=== PATIENT | female | born 1965 | race Caucasian/White ===

== ENCOUNTER 2020-02-10 11:15 | Emergency (ER) | payer OTHER, SELFPAY ==
[2020-02-10 11:28] VITALS: BP 151/78; PULSE 81; RESP 20; TEMP 36.7; O2SAT 99
--- NOTE | 2020-02-10 11:31 | ED.URI ---
HPI - URI/Sore Throat General Chief Complaint: Upper Respiratory Infection Stated Complaint: headache,cough History of Present Illness HPI Narrative: This is a 54-year-old female comes in complaining of a cough congestion headache this been going on since Sunday been taken [id number] with no relief patient had tested for COVID this week and was negative. Patient denies smoking Related Data Allergies Allergy/AdvReac Type Severity Reaction Status Date / Time No Known Allergies Allergy Unknown Verified 05/02/19 11:12 Review of Systems Review of Systems: Narrative: CONSTITUTIONAL: Denies fever, chills, or sweats. EYES: Denies visual changes, redness, or discharge. ENT: Denies rhinorrhea, congestion, sore throat, or otalgia. CARDIOVASCULAR:Denies chest pain, palpitations, or edema. RESPIRATORY: Denies cough or dyspnea. GASTROINTESTINAL: Denies abdominal pain, nausea, vomiting, or diarrhea. GENITOURINARY: Denies dysuria or hematuria. SKIN:[Denies rash or itching. MUSCULOSKELETAL:Denies back pain, joint pain, or myalgia. NEUROLOGIC: Denies headache, numbness, or weakness. PSYCHIATRIC:Denies anxiety or depression [facility] Past Medical History Medical History (Updated 02/10/20 @ 11:51 by Parminder Smith NP) FH: cholecystectomy Hypertension Surgical History Surgical History (Updated 05/09/19 @ 11:41 by Darby Grimes NP) H/O section H/O: hysterectomy Hx of cholecystectomy Family History Family History (Updated 11/30/17 @ 13:21 by DOCTOR UNKNOWN) Other Cerebrovascular accident Family history of chronic obstructive pulmonary disease Family history of lung disease Hypertension Social History Social History Smoking status: Never smoker Alcohol intake: never Gender identity (if verbalized by the patient): Female Comments At time as signature, I have reviewed and agree with nursing past medical, social, surgical and family history. Please see nursing chart for further information. There is no relevant family history pertinent to the presenting complaint. Your blood pressure was elevated in the clinic today, I feel that this is due to your acute illness rather than essential hypertension. please follow-up with your regular doctor for further evaluation and monitor for evaluation of hypertension Please HEMAL schedule a followup visit with your personal physician with in the next 1-4 weeks for further evaluation and treatment. Also, ask your personal physician to assist you regarding blood pressure. Even blood pressure exceeding 120/80 may indicate pre-hypertension. If your symptoms persist, change or worsen significantly before you can contact your personal physician then please, without delay, go to the emergency department for further evaluation. Exam Narrative: Exam Narrative: GENERAL:Well-appearing, well-nourished, and in no acute distress. HEAD:Normocephalic, atraumatic. EYES: PERRLA and EOMI. ENT: Nares clear, positive rhinorrhea or epistaxis. Mucous membranes moist. NECK: Supple. CHEST: Clear to diminished auscultation.course cough continous. HEART: Regular rate and rhythm. No murmur heard. Normal peripheral pulses. ABDOMEN: Soft, nontender, nondistended, normal active bowel sounds. EXTREMITIES: Normal range of motion. No edema. SKIN: Warm, dry, no rash. NEURO: No focal deficits. Alert and oriented x3. Course Vital Signs Vital signs: Vital Signs Temperature 98.1 F 02/10/20 11:28 Pulse Rate 81 02/10/20 11:28 Respiratory Rate 20 02/10/20 11:28 Blood Pressure 151/78 H 02/10/20 11:28 Pulse Oximetry 99 02/10/20 11:28 Temperature 98.1 F 02/10/20 11:28 Pulse Rate 81 02/10/20 11:28 Respiratory Rate 20 02/10/20 11:28 Blood Pressure 151/78 H 02/10/20 11:28 Pulse Oximetry 99 02/10/20 11:28 Discharge Plan Discharge Clinical Impression: Bronchitis Upper respiratory infection Qualifiers: URI type: unspecified viral URI Qualifi
== END 2020-02-10 11:55 | disposition short-term general hospital (02) ==
PROVIDERS: Emergency Provider Nurse Practitioner Family; PCP Family Medicine
DX: J06.9 Acute upper respiratory infection, unspecified (principal)
CPT/HCPCS: 99213; G0463

== ENCOUNTER → 2020-02-20 10:11 | Outpatient (CLI) | payer OTHER, SELFPAY ==
--- NOTE | ~2020-02-20 | XR_ITS ---
EXAMINATION: XR chest 2V DATE: 02/20/2020 10:29 INDICATION: Cough. TECHNIQUE: Frontal and lateral views of the chest were obtained. COMPARISON: CT abdomen and pelvis 02/22/2017 FINDINGS: There is mild atelectasis in left lower lung zone. No pleural effusion or pneumothorax. The heart size is normal. Surgical clips in the right upper quadrant are likely from cholecystectomy. IMPRESSION: 1. Mild atelectasis in left lower lung zone. Reviewed, dictated and finalized at location B.
== END ==
PROVIDERS: PCP Family Medicine; Visit Provider Family Medicine
DX: R05 Cough (principal); J98.11 Atelectasis
CPT/HCPCS: 71046

== ENCOUNTER 2020-10-14 10:24 | Emergency (ER) | payer OTHER, SELFPAY ==
--- NOTE | ~2020-10-14 | XR_ITS ---
EXAMINATION: XR chest 2V DATE: 10/14/2020 11:20 INDICATION: Cough. TECHNIQUE: Frontal and lateral views of the chest were obtained. COMPARISON: Chest 2 views 02/20/2020 FINDINGS: There is mild atelectasis in left lower lung zone. No pleural effusion or pneumothorax. The heart size is normal. Surgical clips in the right upper quadrant are likely from cholecystectomy. IMPRESSION: 1. Mild atelectasis in left lower lung zone. Reviewed, dictated and finalized at location B.
--- NOTE | 2020-10-14 10:31 | ED.GENADULT ---
HPI - General Adult General Chief complaint: Upper Respiratory Infection Stated complaint: Cough,Chills,Body Aches Time Seen by Provider: 10/14/20 10:31 Source: patient Mode of arrival: ambulatory Limitations: no limitations History of Present Illness HPI narrative: 55-year-old female patient presents to the [facility] with complaints of upper respiratory symptoms for the past 3 to 4 days. Patient states she has had a cough, congestion, chills and body aches. Patient denies taking thing for her symptoms. Patient states she has been diagnosed with bronchitis at least once a year for the last couple of years. Denies being a smoker. Patient states that she has never been diagnosed with Covid and states that she has not gotten any Covid vaccines at this time. Patient states that time she has a little bit of shortness of breath but nothing consistent. No shortness of breath on exertion. No chest pain at this time. Related Data Home Medications Medication Instructions Recorded Confirmed phentermine 15 mg PO DAILY 10/14/20 10/14/20 valacyclovir 1,000 mg PO DAILY 10/14/20 10/14/20 Allergies Allergy/AdvReac Type Severity Reaction Status Date / Time No Known Allergies Allergy Unknown Verified 09/08/20 12:06 Review of Systems Review of Systems: Narrative: CONSTITUTIONAL: Denies fever, positive chills, body aches and denies sweats. EYES: Denies visual changes, redness, or discharge. ENT: Positive rhinorrhea, congestion, denies sore throat, positive intermittent right otalgia. CARDIOVASCULAR: Denies chest pain, palpitations, or edema. RESPIRATORY: Positive cough, denies dyspnea. GASTROINTESTINAL: Denies abdominal pain, nausea, vomiting, or diarrhea. GENITOURINARY: Denies dysuria or hematuria. SKIN: Denies rash or itching. MUSCULOSKELETAL: Denies back pain, joint pain, or myalgia. NEUROLOGIC: Denies headache, numbness, or weakness. PSYCHIATRIC: Denies anxiety or depression. [facility] Past Medical History Medical History FH: cholecystectomy Hypertension Normal colonoscopy (~2019) Surgical History Surgical History H/O section H/O: hysterectomy Hx of cholecystectomy Family History Family History Other Cerebrovascular accident Family history of chronic obstructive pulmonary disease Family history of lung disease Hypertension Social History Social History Smoking status: Never smoker Alcohol intake: never Gender identity (if verbalized by the patient): Female Comments At the time of my signature I agree with nursing past medical history, surgical, social, and family history. There is no relevant family history pertinent to the presenting complaint. Exam Narrative: Exam Narrative: GENERAL: Well-appearing, well-nourished, and in no acute distress. HEAD: Normocephalic, atraumatic. EYES: PERRLA and EOMI. ENT: Nares clear, no rhinorrhea or epistaxis. Mucous membranes moist. Posterior pharynx with no erythema, tonsillar edema, exudates or lesions present. There is a little bit of fluid noted behind the right ear on exam. No foreign bodies noted to the canals. NECK: Supple. No lymphadenopathy CHEST: Clear to auscultation. No respiratory distress. Patient able talk in clear complete sentences. No tripoding noted. HEART: Regular rate and rhythm. No murmur heard. Normal peripheral pulses. ABDOMEN: Soft, nontender, nondistended, normal active bowel sounds. EXTREMITIES: Normal range of motion. No edema. SKIN: Warm, dry, no rash. NEURO: No focal deficits. Alert and oriented x3. Course Reevaluation(s) Reevaluation #1: Reevaluated patient notified her that the x-ray does show some atelectasis to the left lower lobe. Discussed with her that while this is not necessarily pneumonia I am to go ahead
[2020-10-14 10:38] VITALS: BP 141/64; PULSE 84; RESP 16; TEMP 36.9; O2SAT 99
[2020-10-15 21:01] LABS: SARS-CoV-2 RNA PCR Negative
== END 2020-10-14 11:34 | disposition home or self-care (01) ==
PROVIDERS: Emergency Provider Nurse Practitioner Family; PCP Family Medicine
DX: J98.11 Atelectasis (principal); Z20.822 Contact with and (suspected) exposure to COVID-19; I10 Essential (primary) hypertension; Z85.9 Personal history of malignant neoplasm, unspecified
CPT/HCPCS: 71046; 99213; C9803; G0463; U0003; U0005

== ENCOUNTER 2020-11-03 09:44 | Outpatient (CLI) | payer OTHER, SELFPAY ==
--- NOTE | ~2020-11-03 | XR_ITS ---
XR abdomen obstructive series DATE: 11/03/2020 10:11 INDICATION: Pneumothorax follow-up TECHNIQUE: Supine and upright AP views of the abdomen COMPARISON: 02/22/2017 CT abdomen pelvis FINDINGS: Surgical clips, right upper quadrant, consistent with cholecystectomy. The psoas shadows are intact. No visceromegaly is evident. There is no evidence of intraperitoneal fr ee air. No bowel obstruction. Diffuse idiopathic skeletal hyperostosis of the lower thoracic spine. Degenerative changes of lumbar spine, most pronounced at L2-3. IMPRESSION: No evidence of bowel obstruction or intraperitoneal free air Reviewed, dictated and finalized at Location A. Reviewed, dictated and finalized at location A.
--- NOTE | ~2020-11-03 | XR_ITS ---
XR chest 2V DATE: 11/03/2020 10:11 INDICATION: Pneumothorax 2 weeks ago TECHNIQUE: PA and lateral views COMPARISON: 10/14/2020 and 02/17/2020 2 view chest FINDINGS: Chronic mild discoid scarring at the left lower lateral lung, not significantly changed sin ce 02/20/2020. No pulmonary infiltrate or consolidation, pleural effusion or pulmonary vascular conges tion or pneumothorax. Normal heart size. No hilar or mediastinal enlargement. Surgical clips, right upper quadrant, consistent with cholecystectomy. Diffuse idiopathic skeletal hyperostosis of the mid to lower thoracic spine. IMPRESSION: No active cardiopulmonary disease; no pneumothorax Reviewed, dictated and finalized at location A.
== END 2020-11-03 09:45 | disposition home or self-care (01) ==
LOC: ANHIMG 09:54
PROVIDERS: PCP Family Medicine; Visit Provider Physician Assistant
DX: J98.11 Atelectasis (principal); R10.9 Unspecified abdominal pain
CPT/HCPCS: 71046; 74019

== ENCOUNTER 2020-11-05 09:00 | Emergency (ER) | payer OTHER, SELFPAY ==
--- NOTE | 2020-11-05 09:17 | ED.URI ---
HPI - URI/Sore Throat General Chief Complaint: Upper Respiratory Infection Stated Complaint: Cough, Lt foot pain Time Seen by Provider: 11/05/20 09:20 Source: patient Mode of arrival: ambulatory Limitations: no limitations History of Present Illness HPI Narrative: Janelle Zavala is a 55 yo female with a recurrent history of complaints of cough and shortness of breath, who comes to [facility] stating that she felt something was wrong even though her chest x-ray was normal 2 days ago in her primary care doctor's office. She also is complaining of foot pain on left from walking around job yesterday Related Data Home Medications Medication Instructions Recorded Confirmed phentermine 15 mg PO DAILY 10/14/20 11/05/20 Allergies Allergy/AdvReac Type Severity Reaction Status Date / Time benzonatate Allergy Blister Verified 11/05/20 09:22 [From Colette Carrillo] Review of Systems Review of Systems: Narrative: CONSTITUTIONAL: Denies fever, chills, sweats. EYES: Denies visual changes, redness, discharge. ENT: Denies rhinorrhea, congestion, sore throat, otalgia. CARDIOVASCULAR: Denies chest pain, palpitations, edema. RESPIRATORY: Denies dyspnea, wheezing, has cough GASTROINTESTINAL: Denies abdominal pain, nausea, vomiting, diarrhea. Right upper quadrant pain GENITOURINARY: Denies dysuria, hematuria, abnormal discharge SKIN: Denies rash or itching. NEUROLOGIC: Denies numbness, or focal weakness. PSYCHIATRIC: Denies anxiety or depression. Left medial heel pain [facility] Past Medical History Medical History FH: cholecystectomy Hypertension Normal colonoscopy (~2018) Surgical History Surgical History H/O section H/O: hysterectomy Hx of cholecystectomy Family History Family History Other Cerebrovascular accident Family history of chronic obstructive pulmonary disease Family history of lung disease Hypertension Social History Social History Alcohol intake: never Gender identity (if verbalized by the patient): Female Comments At time of signature, I agree with nursing past medical, surgical, social and family history. There is no relevant family history pertinent to the presenting complaint. Exam Narrative: Exam Narrative: GENERAL: This is a well-nourished, well-developed patient, in moderate distress with multiple complaints. HEAD: normocephalic, atraumatic. EYES: Sclera clear/white. Vision is grossly intact. EARS: External ears normal, Hearing grossly intact. NOSE: External nose normal without nasal discharge, nares without redness, no rhinorrhea. THROAT: Mucous membranes moist, posterior pharynx mild erythema NECK: Neck supple, non-tender CARDIOVASCULAR: Regular rate and rhythm without murmurs, gallops, or rubs. RESPIRATORY: Clear to auscultation. Breath sounds equal bilaterally. No wheezes, rales, or rhonchi. GASTROINTESTINAL: Abdomen soft, -tender, upper right SKIN: warm, intact with no suspicious lesions or rash, good texture and turgor. NEURO: awake, alert, and oriented to person, place and time. There were no obvious focal neurologic abnormalities. Steady gait EXTREMITIES: Normal range of motion. Left foot pain with flexion extension on the medial heel, no ecchymosis, no swelling BACK: Nontender without deformity Course Course Emergency Course: Patient is here for complaints of cough which is recurrent right upper quadrant pain which is recurrent and left medial heel pain Patient given Phenergan for cough prescribed Qvar which her primary care had tried to give her a couple of months ago and will tire [employer] aircraft to albuterol if the insurance will cover it, and told to use lidocaine gel to left medial foot and wear Pascual wrap and supportive shoes. Patient states that between the
[2020-11-05 09:20] VITALS: BP 120/57; PULSE 85; RESP 18; TEMP 36.4; O2SAT 100
== END 2020-11-05 09:57 | disposition home or self-care (01) ==
PROVIDERS: Emergency Provider Nurse Practitioner; PCP Family Medicine
DX: R05 Cough (principal); R10.11 Right upper quadrant pain; M79.672 Pain in left foot; I10 Essential (primary) hypertension; Z85.9 Personal history of malignant neoplasm, unspecified
CPT/HCPCS: 99213; G0463

== ENCOUNTER 2021-09-07 15:37 | Emergency (ER) | payer OTHER, SELFPAY ==
[2021-09-07 16:00] VITALS: BP 128/81; PULSE 117; RESP 18; TEMP 36.2; O2SAT 98
[2021-09-07 16:16] VITALS: BP 128/81; PULSE 117; RESP 18; TEMP 36.2; O2SAT 98
--- NOTE | 2021-09-07 16:35 | ED.NAVMDI ---
HPI - Nausea/Vomiting/Diarrhea General Chief complaint: Ear Stated complaint: Vomiting,Bilateral Ear Irritation,Headache Time Seen by Provider: 09/07/21 16:20 Source: patient Mode of arrival: ambulatory Limitations: no limitations History of Present Illness HPI Narrative: Janelle Zavala is a 56-year-old female with high blood pressure who [facility] vomiting for 2 days and bilateral ear pain. She describes the vomiting as being dark red coffee-ground in color as she has been unable to eat or drink for the last 2 days when she lays down at night she has gastric reflux that started to occur in the last 2 days; her ears also bother her. She had COVID on August 05 and has recovered for the most part except she continues to have fatigue and some shortness of breath with exertion Related Data Home Medications Medication Instructions Recorded Confirmed lisinopril-hydrochlorothiazide 1 tablet PO DAILY 09/07/21 09/07/21 Allergies Allergy/AdvReac Type Severity Reaction Status Date / Time benzonatate Allergy Blister Verified 09/07/21 15:54 [From Colette Carrillo] Review of Systems Review of Systems: CONSTITUTIONAL: Denies fever, chills, sweats. EYES: Denies visual changes, redness, discharge. ENT: Denies rhinorrhea, congestion, sore throat, bilateral otalgia. CARDIOVASCULAR: Denies chest pain, palpitations, edema. RESPIRATORY: Denies dyspnea, wheezing, cough GASTROINTESTINAL: Denies abdominal pain, nausea, coffee-ground emesis , no diarrhea. GENITOURINARY: Denies dysuria, hematuria, abnormal discharge SKIN: Denies rash or itching. NEUROLOGIC: Denies numbness, or focal weakness. PSYCHIATRIC: Denies anxiety or depression. [facility] Past Medical History Medical History FH: cholecystectomy Hypertension Normal colonoscopy (~2018) Surgical History Surgical History H/O section H/O: hysterectomy Hx of cholecystectomy Family History Family History Other Cerebrovascular accident Family history of chronic obstructive pulmonary disease Family history of lung disease Hypertension Social History Social History (Updated 09/07/21 @ 16:38 by Carolina Villanueva CNP) Smoking status: Never smoker Alcohol intake: never Gender identity (if verbalized by the patient): Female Comments At time of signature, I agree with nursing past medical, surgical, social and family history. There is no relevant family history pertinent to the presenting complaint. Exam Narrative: GENERAL: This is a well-nourished, well-developed patient, in moderate distress. HEAD: normocephalic, atraumatic. EYES: . Sclera clear/white. Vision is grossly intact. EARS: External ears normal, auditory canals erythema with bulging TMs. Hearing grossly intact. NOSE: External nose normal without nasal discharge, nares without redness, no rhinorrhea. THROAT: Mucous membranes moist, posterior pharynx mild erythema NECK: Neck supple, non-tender CARDIOVASCULAR: Tachycardia rate and rhythm without murmurs, gallops, or rubs. RESPIRATORY: Clear to auscultation. Breath sounds equal bilaterally. No wheezes, rales, or rhonchi. GASTROINTESTINAL: Abdomen soft, SKIN: warm, intact with no suspicious lesions or rash, good texture and turgor. NEURO: awake, alert, and oriented to person, place and time. There were no obvious focal neurologic abnormalities. Steady gait EXTREMITIES: Normal range of motion. BACK: Nontender without deformity Course Course Emergency Course: Patient comes to [facility] with coffee-ground emesis and bilateral ear pain On exam we will treat with polymyxin eardrops but due to the coffee-ground emesis and tachycardia will be sent to the ER for further evaluation Level of Care: Express Care Visit Vital Signs Vital signs: Vital Signs Temperature 97.2 F L
== END 2021-09-07 16:35 | disposition short-term general hospital (02) ==
PROVIDERS: Emergency Provider Nurse Practitioner; PCP Family Medicine
DX: H92.03 Otalgia, bilateral (principal); R11.10 Vomiting, unspecified; I10 Essential (primary) hypertension
CPT/HCPCS: 99213; G0463

== ENCOUNTER 2021-09-07 16:56 | Emergency (ER) | payer OTHER, SELFPAY ==
[2021-09-07] VITALS (13 sets, daily range): BP systolic 130–146; BP diastolic 66–89; PULSE 81–111; RESP 11–19; TEMP 36.6; O2SAT 97–100
[2021-09-07 19:12] LABS: Basophils Absolute Auto 0.1 K/mm3 (0.0-0.1); Basophils Percent Auto 0.5 % (0.2-1.2); Eosinophils Absolute Auto 0.1 K/mm3 (0-0.3); Eosinophils Percent Auto 0.4 % (0-4.4); Hematocrit 45.4 % (37.0-47.0); Hemoglobin 14.7 g/dL (12.0-15.0); Immature Granulocyte Percent A 0.7 % (0-0.5); Lymphocytes Percent Auto 21.1 % (18.3-44.2); Mean Corpuscular HGB Conc 32.4 g/dl (32-36); Mean Corpuscular Hemoglobin 28.6 pg (26-34); Mean Corpuscular Volume 88.3 fl (80-100); Mean Platelet Volume 10.5 fl (7.4-10.4); Monocytes Absolute Auto 1.6 K/mm3 (0.1-0.6); Monocytes Percent Auto 10.7 % (2.6-8.5); Neutrophils Absolute Auto 9.8 K/mm3 (1.3-6.7); Neutrophils Percent Auto 66.6 % (45.5-73.1); Platelet Count Result 356 k/mm3 (150-375); Red Blood Count 5.14 M/mm3 (4.2-5.4); Red Cell Distribution Width 13.3 % (11.5-14.5); White Blood Count 14.7 K/mm3 (4.5-10.0)
[2021-09-07 19:18] LABS: Alanine Aminotransferase 22 U/L (4-35); Albumin Level 4.9 g/dL (3.5-5.1); Alkaline Phosphatase 117 U/L (38-126); Anion Gap 10 mmol/L (8-16); Aspartate Amino Transferase 28 U/L (14-36); Bilirubin,Total 0.7 mg/dL (0.2-1.3); Blood Urea Nitrogen 31 mg/dL (7-17); Calcium 10.1 mg/dL (8.4-10.2); Carbon Dioxide 28 mmol/L (22-30); Chloride 99 mmol/L (98-107); Estimated CRCL calculation 49 ml/min; Estimated Glomerular Filt Rate 51; Glucose 116 mg/dL (65-110); Lipase 52 U/L (23-300); Potassium 3.6 mmol/L (3.4-5.0); Sodium 137 mmol/L (137-145)
[2021-09-07] MEDS: SODIUM CHLORIDE 0.9% IV 1,000 ML 999 ML IV CONT (20:48)
[2021-09-07] MEDS: PANTOPRAZOLE SODIUM IV 40 MG VIAL IV PUSH (21:12)
[2021-09-07] MEDS: ONDANSETRON INJ 4 MG/2 ML VIAL IV PUSH (21:12)
--- NOTE | 2021-09-07 22:23 | ED.NAVMDI ---
HPI - Nausea/Vomiting/Diarrhea General Chief complaint: Nausea/Vomiting/Diarrhea Stated complaint: coffee ground emesis Time Seen by Provider: 09/07/21 20:24 Source: patient and family Mode of arrival: ambulatory Limitations: no limitations History of Present Illness HPI Narrative: 56-year-old with a history of hypertension s/p cholecystectomy here with complaints of nausea, vomiting for past 1 week she states that she is feeling extremely dehydrated and weak. She states at times she threw up coffee-ground emesis. She denies any blood in the stool or black-colored stool. Has mild upper abdominal pain. She denies any previous history of gastric ulcers. Denies being lightheaded or dizzy. MD elicited complaint: nausea, vomiting and abdominal pain Onset (ago): week(s) (1) Description of vomiting: coffee grounds and none Description of diarrhea: watery Location of pain: epigastric Pain consistency: intermittent Quality: aching Exacerbating factors: none Relieving factors: none Associated symptoms: denies other symptoms Related Data Home Medications Medication Instructions Recorded Confirmed lisinopril-hydrochlorothiazide 1 tablet PO DAILY 09/07/21 09/07/21 Allergies Allergy/AdvReac Type Severity Reaction Status Date / Time benzonatate Allergy Blister Verified 09/07/21 15:54 [From Colette Carrillo] Review of Systems Review of Systems: All systems reviewed & are unremarkable except as noted in HPI and below Constitutional: Constitutional: Reports no additional constitutional complaints Eyes: Eyes: Reports no additional eye complaints ENT: Reports system reviewed and no additional complaints, except as documented Cardiovascular: Cardiovascular: Reports no additional cardiovascular complaints Respiratory: Respiratory: Reports no additional respiratory complaints Gastrointestinal: Gastrointestinal: Reports as per HPI Musculoskeletal: Musculoskeletal: Reports no additional musculoskeletal complaints Integumentary/Breasts: Skin/Breast: Reports system reviewed and no additional complaints, except as docu Neurologic: Reports system reviewed and no additional complaints, except as documented PMFSH Past Medical History Medical History FH: cholecystectomy Hypertension Normal colonoscopy (~2019) Surgical History Surgical History H/O section H/O: hysterectomy Hx of cholecystectomy Family History Family History Other Cerebrovascular accident Family history of chronic obstructive pulmonary disease Family history of lung disease Hypertension Social History Social History Smoking status: Never smoker Alcohol intake: never Gender identity (if verbalized by the patient): Female Exam Narrative: GENERAL: Well-appearing, well-nourished, and in no acute distress. HEAD: Normocephalic, atraumatic. EYES: PERRLA and EOMI.. NECK: Supple. CHEST: Clear to auscultation. No respiratory distress. HEART: Regular rate and rhythm. No murmur heard. Normal peripheral pulses. ABDOMEN: Soft, mild epigastric tenderness , nondistended, normal active bowel sounds. EXTREMITIES: Normal range of motion. No edema. SKIN: Warm, dry, no rash. NEURO: No focal deficits. Alert and oriented x3. PSYCH: Normal mood and affect. Course Course Emergency Course: Patient started feeling much better after IV fluids. She did not have any further episodes of nausea or vomiting. Her abdominal pain is resolved. Advised her to drink fluids as tolerated. Take medication as prescribed., Follow-up with Dr. Ellington Vital Signs Vital signs: Vital Signs Temperature 36.6 C 09/07/21 17:13 Pulse Rate 108 H 09/07/21 17:13 Respiratory Rate 16 09/07/21 17:13 Blood Pressure 130/85 09/07/21 17:13 Pulse Oximetry 9
== END 2021-09-07 22:52 | disposition home or self-care (01) ==
PROVIDERS: Emergency Provider Family Medicine; PCP Family Medicine
DX: K29.70 Gastritis, unspecified, without bleeding (principal); I10 Essential (primary) hypertension
CPT/HCPCS: 36415; 80053; 83690; 85025; 96361; 96374; 96375; 99284; C9113; J2405; J7030

== ENCOUNTER 2022-01-10 11:19 | Emergency (ER) | payer OTHER, SELFPAY ==
--- NOTE | 2022-01-10 11:28 | ED.URI ---
HPI - URI/Sore Throat General Chief Complaint: Upper Respiratory Infection Stated Complaint: headache,sorethroat,cough Time Seen by Provider: 01/10/22 11:28 Source: patient Mode of arrival: ambulatory Limitations: no limitations History of Present Illness HPI Narrative: Ms. Zavala is a 56-year-old female patient presenting to the clinic today with complaints of a headache, body aches, sore throat, and a cough x3 days. She reports she has had positive exposure to 2 people who tested positive for COVID this week. Reports some mild shortness of breath with nonproductive cough. MD elicited complaint: cough, sore throat, rhinorrhea and nasal congestion Related Data Home Medications Medication Instructions Recorded Confirmed thyroid (pork) 30 mg tablet 30 mg PO DAILY 01/10/22 01/10/22 ([place] [facility]) Allergies Allergy/AdvReac Type Severity Reaction Status Date / Time benzonatate Allergy Blister Verified 01/10/22 11:27 [From Colette Carrillo] Review of Systems Review of Systems: Pertinent positives per HPI. Patient denies any fever, chills, rash, visual changes, dizziness, shortness of breath, chest pain, palpitations, nausea, vomiting, diarrhea, constipation, abdominal pain, or any urinary issues. [facility] Past Medical History Medical History FH: cholecystectomy Hypertension Normal colonoscopy (~2014) [place], Dr. Ruiz Surgical History Surgical History H/O section H/O: hysterectomy Hx of cholecystectomy Family History Family History Other Cerebrovascular accident Family history of chronic obstructive pulmonary disease Family history of lung disease Hypertension Social History Social History Smoking status: Never smoker Alcohol intake: current Drinks per week: 1 Alcohol use details: occasional; once weekly at most Substance use: never Substance use type: does not use Gender identity (if verbalized by the patient): Female Comments At the time of my signature, I reviewed and agree with the nursing past medical, surgical, social, and family history. There is no relevant family history pertinent to the patient complaint. Exam Narrative: General: Well-developed, well nourished, in no apparent distress Head: Normocephalic, atraumatic Eyes: Pupils equally round and reactive to light bilaterally, EOM intact, sclera and conjunctive clear, no discharge, lids normal Ears: TMs intact and clear, ear canals clear, no drainage, grossly hearing normal. Nose: Nares patent, clear nasal discharge, moderate inflammation, no sinus tenderness. Mouth: Oral pharynx without lesions or masses, good dentition, MMM. Postnasal drip, oropharynx red Neck: Supple, trachea midline, no enlargement of anterior or posterior cervical nodes, no thyroid masses or goiter palpable. Cardio: Regular rate and rhythm, s1 and s2 normal, no murmur appreciated. Resp: Clear to auscultation bilaterally, no rhonchi, rales, wheezing or rubs Course Course Emergency Course: Portions of this record may have been created with voice recognition software. Level of Care: Express Care Visit Vital Signs Vital signs: Vital signs reviewed MDM - URI/Sore Throat MDM Narrative Medical decision making narrative: At the time of visit patient is resting comfortably on the exam table. COVID testing is negative in the clinic. Strep screen obtained and was negative in the clinic. I suspect the patient has a viral syndrome. Recommend retesting for COVID tomorrow. Supportive measures were discussed with the patient and work note was given. Patient voiced understanding of discharge instructions and agrees to treatment plan Differential Diagnosis Differential diagnosis: Likely u
[2022-01-10 11:31] VITALS: BP 138/68; PULSE 85; RESP 18; TEMP 36.9; O2SAT 100
== END 2022-01-10 12:25 | disposition home or self-care (01) ==
PROVIDERS: Emergency Provider Nurse Practitioner Family; PCP Family Medicine
DX: B34.9 Viral infection, unspecified (principal); Z20.822 Contact with and (suspected) exposure to COVID-19; I10 Essential (primary) hypertension
CPT/HCPCS: 87081; 87426; 87880; 99213; C9803; G0463

== ENCOUNTER 2022-01-13 12:18 | Emergency (ER) | payer OTHER, SELFPAY ==
[2022-01-13 12:32] VITALS: BP 141/63; PULSE 82; RESP 18; TEMP 37; O2SAT 99
--- NOTE | 2022-01-13 12:33 | ED.URI ---
HPI - URI/Sore Throat General Chief Complaint: Skin/Abscess/Foreign Body Stated Complaint: rash Time Seen by Provider: 01/13/22 12:33 Source: patient, RN notes reviewed and old records reviewed Mode of arrival: ambulatory Limitations: no limitations History of Present Illness HPI Narrative: 56-year-old female returns to the [facility] with a rash to the right upper forehead and into the scalp. Was seen on 10 January for a URI and states she is feeling better however woke up with this red itching, burning and tingling area to the upper right forehead. Denies any blurry vision change in vision. Denies fevers. Denies headache. Has been applying triamcinolone cream Onset (ago): day(s) (1) Related Data Home Medications Medication Instructions Recorded Confirmed thyroid (pork) 30 mg tablet 30 mg PO DAILY 01/10/22 01/13/22 ([place] [facility]) Allergies Allergy/AdvReac Type Severity Reaction Status Date / Time benzonatate Allergy Blister Verified 01/13/22 12:39 [From Colette Carrillo] Review of Systems Review of Systems: All systems reviewed & are unremarkable except as noted in HPI and below Constitutional: Constitutional: Reports no additional constitutional complaints, Denies chills and Denies fever(s) Eyes: Eyes: Reports no additional eye complaints ENT: Reports system reviewed and no additional complaints, except as documented Cardiovascular: Cardiovascular: Reports no additional cardiovascular complaints Respiratory: Respiratory: Reports no additional respiratory complaints Gastrointestinal: Gastrointestinal: Reports no additional gastrointestinal complaints Musculoskeletal: Musculoskeletal: Reports no additional musculoskeletal complaints Integumentary/Breasts: Skin/Breast: Reports as per HPI and Reports rash Neurologic: Reports system reviewed and no additional complaints, except as documented Psychiatric: Psychiatric: Reports no additional psychiatric complaints Allergic/Immunologic: Allergic/Immunologic: Reports no additional allergic/immunologic complaints [facility] Past Medical History Medical History FH: cholecystectomy Hypertension Normal colonoscopy (~2014) Dr. Joseph Eli Surgical History Surgical History H/O section H/O: hysterectomy Hx of cholecystectomy Family History Family History Other Cerebrovascular accident Family history of chronic obstructive pulmonary disease Family history of lung disease Hypertension Social History Social History Smoking status: Never smoker Alcohol intake: current Drinks per week: 1 Alcohol use details: occasional; once weekly at most Substance use: never Substance use type: does not use Gender identity (if verbalized by the patient): Female Comments At the time of my signature, I reviewed and agree with the nursing past medical, surgical, social, and family history. There is no relevant family history pertinent to the patient complaint. Exam Const: General: healthy appearing, no acute distress and alert Nutritional Appearance: well nourished Orientation/consciousness: patient oriented x3 Limitations: no limitations HENMT: Head: normal to inspection Ears: external ears normal, TM's normal bilaterally and EAC's normal Eyes: General: appearance normal, both eyes and all related structures Conjunctivae: conjunctivae normal Pupils: Equal, round and reactive pupils present EOM: EOMs intact bilaterally Direct Ophthalmoscopy: no photophobia Neck: Neck: normal visual inspection, no lymphadenopathy and no meningeal signs Chest: Chest palpation & inspection: normal inspection of the chest Resp: Effort & Inspection: normal respiratory effort and no use of accessory muscles Auscultation: clear t
== END 2022-01-13 12:53 | disposition home or self-care (01) ==
PROVIDERS: Emergency Provider Nurse Practitioner; PCP Family Medicine
DX: B02.9 Zoster without complications (principal); I10 Essential (primary) hypertension
CPT/HCPCS: 99213; G0463

== ENCOUNTER 2023-02-22 20:53 | Emergency (ER) | payer OTHER, SELFPAY | END 2023-02-22 23:30 | disposition left against medical advice (07) | LOC: ANHED 21:04 | PROVIDERS: PCP Family Medicine | DX: Z53.21 Procedure and treatment not carried out due to patient leaving prior to being seen by health care provider (principal) | CPT/HCPCS: 99199 ==

== ENCOUNTER 2023-02-23 07:40 | Emergency (ER) | payer OTHER, SELFPAY ==
[2023-02-23] VITALS (7 sets, daily range): BP systolic 126–135; BP diastolic 56–84; PULSE 18–108; RESP 12–73; TEMP 36.4; O2SAT 97–100
--- NOTE | ~2023-02-23 | XR_ITS ---
Clinical Indication: Cough PA and lateral views of the chest: Comparison: 11/03/2020 Findings: The lungs are clear, without evidence of focal consolidation or pleural effusion. Cardiome diastinal silhouette is within normal limits. Bones and soft tissues are unremarkable. Impression: Normal chest. Reviewed, dictated and finalized at location . Impression: Normal chest.
[2023-02-23 09:38] LABS: Basophils Absolute Auto 0.1 K/mm3 (0.0-0.1); Basophils Percent Auto 0.6 % (0.2-1.2); Eosinophils Absolute Auto 0.1 K/mm3 (0-0.3); Eosinophils Percent Auto 0.9 % (0-4.4); Hematocrit 45.4 % (37.0-47.0); Hemoglobin 14.7 g/dL (12.0-15.0); Immature Granulocyte Absolute 0.04 K/mm3 (0.00-0.031); Immature Granulocyte Percent A 0.5 % (0-0.5); Lymphocytes Absolute Auto 2.33 K/mm3 (0.9-3.2); Lymphocytes Percent Auto 27.2 % (18.3-44.2); Mean Corpuscular HGB Conc 32.4 g/dl (32-36); Mean Corpuscular Hemoglobin 28.3 pg (26-34); Mean Corpuscular Volume 87.3 fl (80-100); Mean Platelet Volume 10.3 fl (7.4-10.4); Monocytes Absolute Auto 0.9 K/mm3 (0.1-0.6); Monocytes Percent Auto 10.4 % (2.6-8.5); Neutrophils Absolute Auto 5.2 K/mm3 (1.3-6.7); Neutrophils Percent Auto 60.4 % (45.5-73.1); Platelet Count Result 296 k/mm3 (150-375); Red Cell Distribution Width 13.2 % (11.5-14.5); White Blood Count 8.6 K/mm3 (4.5-10.0)
[2023-02-23] MEDS: SODIUM CHLORIDE 0.9% IV 1,000 ML 999 ML IV CONT ×2 (09:41→11:30)
[2023-02-23 09:50] LABS: Alanine Aminotransferase 31 U/L (6-35); Albumin Level 4.9 g/dL (3.5-5.1); Alkaline Phosphatase 92 U/L (38-126); Anion Gap 11 mmol/L (8-16); Aspartate Amino Transferase 28 U/L (14-36); Bilirubin,Total 0.7 mg/dL (0.2-1.3); Blood Urea Nitrogen 24 mg/dL (7-17); Calcium 10.4 mg/dL (8.4-10.2); Carbon Dioxide 28 mmol/L (22-30); Chloride 100 mmol/L (98-107); Estimated CRCL calculation 62 ml/min; Estimated Glomerular Filt Rate > 60; Glucose 101 mg/dL (65-110); Potassium 4.1 mmol/L (3.4-5.0); Sodium 139 mmol/L (137-145)
[2023-02-23 11:11] LABS: Magnesium 2.1 mg/dL (1.6-2.3)
--- NOTE | 2023-02-23 12:43 | ED.GENADULT ---
HPI - General Adult General Chief complaint: Unspecified Stated complaint: tired, no appetite, cough Time Seen by Provider: 02/23/23 08:04 History of Present Illness HPI narrative: This is a 57-year-old female, with past history of hypertension, who presents emergency department complaining of general fatigue for the past month. She also notes painless soft masses in the left arm. She has no other complaints at this time. Related Data Home Medications Medication Instructions Recorded Confirmed thyroid (pork) 30 mg tablet 30 mg PO DAILY 01/10/22 01/13/22 ([place] [facility]) Allergies Allergy/AdvReac Type Severity Reaction Status Date / Time benzonatate Allergy Blister Verified 02/23/23 08:00 [From Colette Carrillo] Review of Systems Review of Systems: CONSTITUTIONAL: Denies fever, chills, or sweats. CARDIOVASCULAR: Denies chest pain, palpitations, or edema. RESPIRATORY: Denies cough or dyspnea. GASTROINTESTINAL: Denies abdominal pain, nausea, vomiting, or diarrhea. GENITOURINARY: Denies dysuria or hematuria. SKIN: Denies rash or itching. MUSCULOSKELETAL: Denies back pain, joint pain, or myalgia. NEUROLOGIC: Denies headache, numbness, dizziness, or weakness. PSYCHIATRIC: Denies anxiety or depression. [facility] Past Medical History Medical History FH: cholecystectomy Hypertension Normal colonoscopy (~2014) Dr. Joseph Eli Surgical History Surgical History H/O section H/O: hysterectomy Hx of cholecystectomy Family History Family History Other Cerebrovascular accident Family history of chronic obstructive pulmonary disease Family history of lung disease Hypertension Social History Social History Smoking status: Never smoker Second hand tobacco smoke exposure: No Alcohol intake: current Drinks per week: 1 Alcohol use details: occasional; once weekly at most Substance use: never Substance use type: does not use Living arrangements: with family Gender identity (if verbalized by the patient): Female Sexual Orientation (if Verbalized by the Patient): Straight or Heterosexual Spiritual care concerns: No Agree to blood products: Yes Exam Narrative: GENERAL: Well-developed, well-nourished, and in no acute distress. HEAD: Normocephalic, atraumatic. EYES: PERRLA and EOMI. CHEST: Clear to auscultation. No respiratory distress. No wheezes rales or rhonchi HEART: Regular rate and rhythm. No murmur heard. Normal peripheral pulses. ABDOMEN: Soft, nontender, nondistended, normal active bowel sounds. EXTREMITIES: Normal range of motion. No edema. SKIN: Soft, mobile masses (x2) noted in the skin of the left ventral forearm, just distal to the elbow, consistent with lipomas. Skin otherwise warm, dry, no rash. NEURO: Alert and oriented x3. Moving all 4 limbs purposefully. PSYCH: Normal mood and affect. Course Course Emergency Course: 12:40 - CBC unremarkable. Chemistries demonstrate mild hypercalcemia of 10.4 but otherwise unremarkable. Chest x-ray unremarkable. She states she feels improved after IV fluids. I advised the patient to follow-up with her primary care doctor for further evaluation. Discussed return and emergency precautions including signs/symptoms of ACS and respiratory distress. She voiced understanding and is comfortable with the plan. All questions answered to her satisfaction. Vital Signs Vital signs: Vital Signs Temperature 97.5 F L 02/23/23 07:45 Pulse Rate 108 H 02/23/23 07:45 Respiratory Rate 18 02/23/23 07:45 Blood Pressure 128/84 02/23/23 07:45 Pulse Oximetry 98 02/23/23 07:45 Oxygen Delivery Room Air 02/23/23 07:45 Temperature 97.5 F L 02/23/23 07:45 Pulse Rate 76 02/23/23 13
== END 2023-02-23 13:54 | disposition home or self-care (01) ==
PROVIDERS: Emergency Provider Preventive Medicine Aerospace Medicine; PCP Family Medicine
DX: R53.83 Other fatigue (principal); I10 Essential (primary) hypertension; Z90.710 Acquired absence of both cervix and uterus; Z90.49 Acquired absence of other specified parts of digestive tract
CPT/HCPCS: 36415; 71046; 80053; 83735; 85025; 96360; 96361; 99283; J7030

== ENCOUNTER → 2023-03-27 11:37 | Outpatient (CLI) | payer OTHER, SELFPAY ==
--- NOTE | ~2023-03-27 | US_ITS ---
EXAMINATION: US thyroid DATE: 03/27/2023 11:54 INDICATION: Iron deficiency related diffuse goiter. TECHNIQUE: Multiple ultrasound images of the thyroid were obtained. COMPARISON: None. FINDINGS: The right thyroid lobe measures 4.5 x 1.5 x 1.2 cm. The left thyroid lobe measures 2.9 x 1.3 x 1.2 c m. In the right thyroid lobe, there is a 13 mm solid, hypoechoic, wider than tall nodule with ill-de fined margin without echogenic foci (TI-RADS TR4). IMPRESSION: 1. Right thyroid nodule. Thyroid ultrasound is recommended in one year. Reviewed, dictated and finalized at location E.
== END ==
PROVIDERS: PCP Physician Assistant; Visit Provider Physician Assistant
DX: E01.0 Iodine-deficiency related diffuse (endemic) goiter (principal)
CPT/HCPCS: 76536

== ENCOUNTER 2023-05-01 14:19 | Emergency (ER) | payer OTHER, SELFPAY ==
--- NOTE | 2023-05-01 14:35 | ED.URI ---
HPI - URI/Sore Throat General Chief Complaint: Upper Respiratory Infection Stated Complaint: cough,bilateral ear pain Time Seen by Provider: 05/01/23 14:36 Source: patient, RN notes reviewed and old records reviewed Mode of arrival: ambulatory Limitations: no limitations History of Present Illness HPI Narrative: 58-year-old female presents to the [facility] with complaints cough and bilateral ear pain for about 2 weeks, worse over the last 3 days. Has not taken anything for her symptoms. States she has had an intermittent headache. [place] feverish but did take her temperature. Denies chest pain, shortness of breath, abdominal pain. Treatments prior to arrival: none Related Data Allergies Allergy/AdvReac Type Severity Reaction Status Date / Time benzonatate AdvReac Mild Blister Verified 05/01/23 14:32 [From Colette Carrillo] Review of Systems Review of Systems: All systems reviewed & are unremarkable except as noted in HPI and below Constitutional: Constitutional: Reports no additional constitutional complaints Eyes: Eyes: Reports no additional eye complaints ENT: Reports as per HPI Cardiovascular: Cardiovascular: Reports no additional cardiovascular complaints, Denies chest pain and Denies dyspnea Respiratory: Respiratory: Reports as per HPI, Denies chest congestion, Reports cough and Denies dyspnea Gastrointestinal: Gastrointestinal: Reports no additional gastrointestinal complaints, Denies abdominal pain, Denies nausea and Denies vomiting Musculoskeletal: Musculoskeletal: Reports no additional musculoskeletal complaints Integumentary/Breasts: Skin/Breast: Reports system reviewed and no additional complaints, except as docu Neurologic: Reports system reviewed and no additional complaints, except as documented Psychiatric: Psychiatric: Reports no additional psychiatric complaints Allergic/Immunologic: Allergic/Immunologic: Reports no additional allergic/immunologic complaints [facility] Past Medical History Medical History FH: cholecystectomy Hypertension Normal colonoscopy (~2014) Dr. Joseph Eli Surgical History Surgical History H/O section H/O: hysterectomy Hx of cholecystectomy Family History Family History Other Cerebrovascular accident Family history of chronic obstructive pulmonary disease Family history of lung disease Hypertension Social History Social History Smoking status: Never smoker Second hand tobacco smoke exposure: No Alcohol intake: current Drinks per week: 1 Alcohol use details: occasional; once weekly at most Substance use: never Substance use type: does not use Lack of Transportation: No Lack of Food: Never True Current Housing: I Have Housing Concerned About Future Housing: No Difficulty Paying Gas/Electric Bills: No Difficulty Paying for Meds: Decline to Answer Currently Unemployed: Decline to Answer Education: High School Diploma/GED Living arrangements: with family Gender identity (if verbalized by the patient): Female Sexual Orientation (if Verbalized by the Patient): Straight or Heterosexual Spiritual care concerns: No Agree to blood products: Yes Comments At the time of my signature, I reviewed and agree with the nursing past medical, surgical, social, and family history. There is no relevant family history pertinent to the patient complaint. Exam Const: General: cooperative, healthy appearing, comfortable, no acute distress, well developed, alert and well nourished Nutritional Appearance: well nourished and obese Orientation/consciousness: patient oriented x3 Limitations: no limitations HENMT: Head: normal to inspection Ears: hearing grossly normal bilaterally, external ears normal, TM's n
[2023-05-01 14:40] VITALS: BP 139/81; PULSE 104; RESP 18; TEMP 36.2; O2SAT 98
== END 2023-05-01 14:48 | disposition home or self-care (01) ==
PROVIDERS: Emergency Provider Nurse Practitioner; PCP Family Medicine
DX: J06.9 Acute upper respiratory infection, unspecified (principal); H65.02 Acute serous otitis media, left ear; R09.82 Postnasal drip; I10 Essential (primary) hypertension
CPT/HCPCS: 99213; G0463

== ENCOUNTER 2023-05-08 17:43 | Emergency (ER) | payer OTHER, SELFPAY ==
[2023-05-08 17:50] VITALS: BP 149/78; PULSE 94; RESP 18; TEMP 36.2; O2SAT 99
--- NOTE | 2023-05-08 17:50 | ED.URI ---
HPI - URI/Sore Throat General Chief Complaint: Upper Respiratory Infection Stated Complaint: Cough,Rt Ear Irritation Time Seen by Provider: 05/08/23 17:51 Source: patient Mode of arrival: ambulatory Limitations: no limitations History of Present Illness HPI Narrative: 58-year-old female presented for complaint of persistent cough for 2 weeks. Cough is frequent and nonproductive. Also reports right ear pain intermittently for one week. Patient was seen at this clinic 1 week ago for the same complaints, completed steroids as directed. Also using Flonase and Zyrtec for fluid in the right ear. Reports it feels like the ear is draining when laying down. Denies fluid/drainage from the ear, tinnitus, dizziness, sob, wheezing, n/v/d/f/c. Related Data Allergies Allergy/AdvReac Type Severity Reaction Status Date / Time benzonatate AdvReac Mild Blister Verified 05/01/23 14:32 [From Colette Carrillo] Review of Systems Review of Systems: CONSTITUTIONAL: Denies body aches, fever, chills, or sweats. EYES: Denies visual changes, redness, or discharge. ENT: reports rhinorrhea, congestion, right ear pain denies sore throat CARDIOVASCULAR: Denies chest pain, palpitations, or edema. RESPIRATORY: Reports cough, denies sob, wheezing. GASTROINTESTINAL: Denies abdominal pain, nausea, vomiting, or diarrhea. SKIN: Denies rash, itching, or wounds. MUSCULOSKELETAL: Denies back pain, joint pain, or myalgia. NEUROLOGIC: Denies headache, numbness, tingling, or weakness. All systems reviewed & are unremarkable except as noted in HPI and below PMF[facility] Past Medical History Medical History FH: cholecystectomy Hypertension Normal colonoscopy (~2014) Dr. Joseph Eli Surgical History Surgical History H/O section H/O: hysterectomy Hx of cholecystectomy Family History Family History Other Cerebrovascular accident Family history of chronic obstructive pulmonary disease Family history of lung disease Hypertension Social History Social History Smoking status: Never smoker Second hand tobacco smoke exposure: No Alcohol intake: current Drinks per week: 1 Alcohol use details: occasional; once weekly at most Substance use: never Substance use type: does not use Lack of Transportation: No Lack of Food: Never True Current Housing: I Have Housing Concerned About Future Housing: No Difficulty Paying Gas/Electric Bills: No Difficulty Paying for Meds: Decline to Answer Currently Unemployed: Decline to Answer Education: High School Diploma/GED Living arrangements: with family Gender identity (if verbalized by the patient): Female Sexual Orientation (if Verbalized by the Patient): Straight or Heterosexual Spiritual care concerns: No Agree to blood products: Yes Comments At time of signature, I have reviewed and agree with nursing past medical, surgical, social and family history unless otherwise noted. Please see nursing chart for further information. There is no relevant family history pertinent to the presenting complaint Exam Narrative: GENERAL: Well-appearing, in no acute distress. EYES: EOMI. No redness or drainage. Conjunctivae normal. ENT: Mucous membranes pink and moist. No rhinorrhea. TMs normal bilaterally, mild cerumen to right canal, no erythema or swelling of canal; no tragal or mastoid tenderness. Throat normal. Uvula midline. NECK: Normal AROM. Supple. CHEST: No respiratory distress. Lungs clear to all vásquez. Occasional ordnance officer cough. HEART: Regular rate and rhythm. No murmur appreciated. ABDOMEN: Soft, nontender, nondistended, normal active bowel sounds. EXTREMITIES: Normal range of motion. No edema. SKIN: Warm, dry, no rash. Capillary refill normal. Normal
[2023-05-08 17:51] VITALS: BP 149/78; PULSE 94; RESP 18; TEMP 36.2; O2SAT 99
== END 2023-05-08 18:01 | disposition home or self-care (01) ==
PROVIDERS: Emergency Provider Nurse Practitioner Family; PCP Family Medicine
DX: J40 Bronchitis, not specified as acute or chronic (principal)
CPT/HCPCS: 99213; G0463

== ENCOUNTER → 2023-08-13 16:03 | Outpatient (CLI) | payer OTHER, SELFPAY ==
--- NOTE | ~2023-08-13 | MM_ITS ---
EXAMINATION: MM screening [place] BI w idania HISTORY: Screening TECHNIQUE: Craniocaudal and mediolateral oblique 3-D tomosynthesis images were obtained and synthetic 2-D images were generated. CAD analysis was submitted and interpreted. COMPARISON: No prior mammogram is available for comparison at this institution. BREAST PARENCHYMAL COMPOSITION: Not dense: There are scattered areas of fibroglandular density. FINDINGS: There is a benign-appearing intramammary lymph node in the upper outer quadrant of the righ t breast. There is no evidence of suspicious mass, calcification, or architectural distortion to sugg est malignancy in either breast. There has been no suspicious interval change. IMPRESSION: 1. No mammographic evidence of malignancy. 2. Recommend routine screening mammography in one year. BI-RADS Category 1: Negative Reviewed, dictated and finalized at location A. RAISER
== END ==
PROVIDERS: PCP Physician Assistant; Visit Provider Physician Assistant
DX: Z12.31 Encounter for screening mammogram for malignant neoplasm of breast (principal)
CPT/HCPCS: 77063; 77067

== ENCOUNTER 2024-03-31 10:52 | Outpatient (CLI) | payer OTHER, SELFPAY ==
--- NOTE | ~2024-03-31 | US_ITS ---
EXAMINATION: US thyroid DATE: 03/31/2024 11:14 INDICATION: Nontoxic single thyroid nodule. TECHNIQUE: Multiple ultrasound images of the thyroid were obtained. COMPARISON: Thyroid ultrasound of 03/27/2023 FINDINGS: The right thyroid lobe measures 4.7 x 1.5 x 1.2 cm. The left thyroid lobe measures 3.2 x 1.3 x 1.2 c m. In the right thyroid lobe, there is a 10 mm solid, hypoechoic, wider than tall nodule with smooth margin without echogenic foci (TI-RADS TR4), stable from 03/27/23. In the right thyroid lobe, there i s a 6 mm solid, hypoechoic, wider than tall nodule with smooth margin without echogenic foci (TR4). I n the left thyroid lobe, there is a 3 mm nodule. IMPRESSION: 1. Small thyroid nodules. Thyroid ultrasound is recommended in one year. Reviewed, dictated and finalized at location A.
== END 2024-03-31 10:53 | disposition home or self-care (01) ==
LOC: MICIMG 10:53
PROVIDERS: PCP Family Medicine; Visit Provider Family Medicine
DX: E04.2 Nontoxic multinodular goiter (principal)
CPT/HCPCS: 76536

== ENCOUNTER 2024-06-10 12:27 | Emergency (ER) | payer OTHER, SELFPAY ==
--- NOTE | 2024-06-10 12:49 | ED_ITS ---
HPI - URI/Sore Throat General Chief Complaint: Upper Respiratory Infection Stated Complaint: Cough/flu like symptoms History of Present Illness HPI Narrative: 59-year-old female presented for complaint of headache, body aches, sinus pressure/congestion, cough, fever/chills. Onset 2 days. Temp up to 101. Taking DayQuil and NyQuil and using Flonase. Denies sob, wheezing, n/v/d or lethargy. Denies known sick contacts. Related Data Allergies Allergy/AdvReac Type Severity Reaction Status Date / Time benzonatate (From [facility] AdvReac Mild Blister Verified 06/10/24 12:41 [place]) Review of Systems Review of Systems: CONSTITUTIONAL: reports body aches, fever, chills, or sweats. EYES: Denies visual changes, redness, or discharge. ENT: reports rhinorrhea, congestion, otalgia. CARDIOVASCULAR: Denies chest pain, palpitations, or edema. RESPIRATORY: reports cough Denies dyspnea. GASTROINTESTINAL: Denies abdominal pain, nausea, vomiting, or diarrhea. SKIN: Denies rash MUSCULOSKELETAL: Denies back pain, joint pain NEUROLOGIC: Denies headache PMFSH Past Medical History Medical History Normal colonoscopy (~2014) Dr. Joseph Eli FH: cholecystectomy Hypertension Surgical History Surgical History Hx of cholecystectomy H/O section H/O: hysterectomy Family History Family History Other Cerebrovascular accident Family history of chronic obstructive pulmonary disease Family history of lung disease Hypertension Social History Social History Smoking status: Never smoker Second hand tobacco smoke exposure: No Alcohol intake: current Drinks per week: 1 Alcohol use details: occasional; once weekly at most Substance use: never Substance use type: does not use Lack of Transportation: No Lack of Food: Never True Current Housing: I Have Housing Concerned About Future Housing: No Difficulty Paying Gas/Electric Bills: No Difficulty Paying for Meds: Decline to Answer Currently Unemployed: Decline to Answer Education: High School Diploma/GED Living arrangements: with family Gender identity (if verbalized by the patient): Female Sexual Orientation (if Verbalized by the Patient): Straight or Heterosexual Spiritual care concerns: No Agree to blood products: Yes Exam Narrative: GENERAL: mildly Ill-appearing, no acute distress. EYES: conjunctivae clear ENT: Mucous membranes moist. TMs pearly shepherd with normal light reflex and clear effusion bilaterally; no tragal tenderness. Oropharynx not erythematous without lesions. No drooling, no hoarseness, no trismus, uvula midline. No tripod positioning, hot potato voice, or soft palate swelling. NECK: Supple. No lymphadenopathy CHEST: Clear to auscultation, breath sounds equal. No respiratory distress, speaks in full sentences. HEART: Regular rate and rhythm. No murmur heard. SKIN: Warm, dry, no rash. NEURO: Alert and oriented x3. Course Course Emergency Course: Patient is aware of diagnosis, understands and agrees to treatment plan. Anticipatory guidance given. Patient agrees to follow-up as directed and is aware of reasons to seek care at the emergency department. Portions of this record may have been created with voice recognition software Level of Care: Express Care Visit MDM - URI/Sore Throat MDM Narrative Medical decision making narrative: POS covid, result reviewed with pt. Advise supportive treatments. Patient is appropriate for outpatient treatment and follow-up. Differential Diagnosis Differential diagnosis: Likely upper respiratory infection, viral infection and pharyngitis Discharge Plan Discharge Clinical Impression: COVID-19 Patient Disposition: Home, Self-Care Condition: Stable Instructions: COVID-19 (Coronavirus Disease 2019) (ED) Additional Instructions: Your rapid COVID test was positive today. The following updated recommendations have been made by the CDC and local Health Departments, regarding COVID-19: - When people get sick with a respiratory virus, they stay home and away from others. - Return to normal activities when, for at least 24 hours, symptoms are improving overall, and if a fever was present, it has been gone without use of a fever-reducing medication. - Once people resume normal activities, they are encouraged to take additional prevention strategies for the next 5 days to curb disease spread, such as taking more steps for machine heddle cleaner air, enhancing hygiene practices, wearing a well-fitting mask, keeping a distance from others, and/or getting tested for respiratory viruses. - Enhanced precautions are especially important to protect those most at risk for severe illness, including those over 65 and people with weakened immune systems. Rest, stay hydrated. Tylenol and ibuprofen every 8 hours as needed Flonase/nasal spray, Zyrtec, cough syrup cold/flu medications for symptoms as needed Follow up with your primary care provider, call to schedule an appointment. Go to the ER for worsening symptoms or concerns. Patient Language: Bruneian Prescriptions: No Action Linzess 145 mcg capsule 145 mcg PO DAILY Qty: 30 0RF lisinopril-hydrochlorothiazide 20-12.5 mg tablet 1 tablet PO BID Qty: 180 1RF phentermine 30 mg capsule 30 mg PO DAILY Qty: 30 0RF Rx Instructions: must administer 2 hours after breakfast Follow-up/Referrals: Jeanette Ellington MD [Primary Care Provider] - Stand Alone Forms: Work/School Release IP Time of Disposition: 12:58
[2024-06-10 12:51] VITALS: BP 137/57; PULSE 103; RESP 18; TEMP 36.8; O2SAT 100
[2024-06-10 13:14] LABS: EDCOVIDSCREEN Positive (Negative); EDINFLUASCREEN Negative (Negative); EDINFLUBSCREEN Negative (Negative)
== END 2024-06-10 13:00 | disposition home or self-care (01) ==
PROVIDERS: Emergency Provider Nurse Practitioner Family; PCP Family Medicine
DX: U07.1 COVID-19 (principal); I10 Essential (primary) hypertension
CPT/HCPCS: 87426; 87804; 99212; 99213; G0463